=== PATIENT | male | born 1985 | race Caucasian/White ===

== ENCOUNTER 2017-02-24 17:20 | Emergency (ER) | payer OTHER ==
[~2017-02-24] VITALS: Ht 175.3 cm; Wt 77.3 kg
[2017-02-24] MEDS ORDERED: VALP250 PO (17:26)
[2017-02-24] MEDS ORDERED: RISP2 PO (17:26)
[2017-02-24] MEDS ORDERED: PARO20TA24 PO (17:26)
[2017-02-24 21:32] VITALS: BP 124/69
== END 2017-02-24 21:33 | disposition home or self-care (01) ==
LOC: EMS 17:22
DX: F41.9 Anxiety disorder, unspecified (principal)
CPT/HCPCS: 99284

== ENCOUNTER 2017-02-28 18:50 | Emergency (ER) | payer OTHER ==
[~2017-02-28] VITALS: Ht 175.3 cm; Wt 77.3 kg
[~2017-02-28 18:50] MED LIST: PARO20TA24 PO; RISP2 PO; VALP250 PO
[2017-02-28] MEDS ORDERED: LORA0.5T2 PO (18:59)
[2017-02-28 19:37] VITALS: BP 121/61
== END 2017-02-28 19:44 | disposition home or self-care (01) ==
LOC: EMS 18:51
DX: Z76.0 Encounter for issue of repeat prescription (principal); F41.9 Anxiety disorder, unspecified
CPT/HCPCS: 99283